=== PATIENT | female | born 1990 | race Hispanic/Latino ===

== ENCOUNTER 2020-11-20 01:47 | Emergency (ER) | payer BC ==
[2020-11-20] MEDS ORDERED: MAGNES/ALUMIN/SIMET 30ML UCUP ONE (03:10)
[2020-11-20] MEDS ORDERED: NA CHLORIDE 0.9% 1,000 ML ONE (03:11)
[2020-11-20] MEDS ORDERED: KETOROLAC 30 MG/ML INJ ONE (03:11)
[2020-11-20] MEDS ORDERED: LIDOCAINE VISCOUS 2% SOLN 15 ML UDC ONE (03:11)
[2020-11-20] MEDS ORDERED: ONDANSETRON 4 MG/2 ML VIAL ONE ×2 (03:11→06:07)
[2020-11-20] MEDS ORDERED: FAMOTIDINE 20 MG/2 ML VIAL IV ONE (03:11)
[2020-11-20 03:48] LABS: Absolute Lymphocytes (CBC) 0.8 K/uL (0.7-4.9); Basophils % 0.4 % (0-1.3); Hematocrit 36.6 % (36.0-45.0); Lymphocytes % 8.6 % (15.3-44.8); RBC Red Blood Cell Count 4.38 M/uL (3.86-4.86)
[2020-11-20 04:03] LABS: Albumin 3.6 g/dL (3.4-5.0); Alkaline Phosphatase 195 U/L (45-117); BUN Blood Urea Nitrogen 13 mg/dL (7-18); Bicarbonate 27 mmol/L (21-32); Bilirubin Direct 0.3 mg/dL (0-0.2); Bilirubin Total 0.6 mg/dL (0.2-1.0); Glucose Level 120 mg/dL (74-106); Lipase 191 U/L (73-393); Potassium 3.5 mmol/L (3.5-5.1); Protein, Total 7.8 g/dL (6.4-8.2); Sodium Level 142 mmol/L (136-145)
[2020-11-20 04:05] LABS: ALT/SGPT 448 U/L (12-78); AST/SGOT 396 U/L (15-37)
[2020-11-20] MEDS ORDERED: MORPHINE 4 MG/ML SYR ONE (06:07)
[2020-11-20 06:28] LABS: Blood Morphology Comment NOT SEEN (NOT SEEN); Platelet Estimate ADEQ
[2020-11-20] MEDS ORDERED: D5.45NS W/KCL 20MEQ 1,000 ML IV ONE (07:06)
[2020-11-20 07:16] LABS: Urine Blood NEGATIVE (NEG); Urine Glucose NEGATIVE (NEG); Urine Protein NEGATIVE (NEG); Urine pH 6.5 (5.0-7.0)
--- NOTE | 2020-11-20 07:22 | RAD REPORT ---
EXAM DESCRIPTION: US - Abdomen Exam Limited - 11/20/2020 7:11 am CLINICAL HISTORY: ABD PAIN COMPARISON: Abdomen Pelvis W Contrast dated 11/20/2020 FINDINGS: Gallbladder size is normal. Multiple 1 centimeter or less sized mobile gallstones are seen collecting in the dependent portion of the gallbladder. No wall thickening or pericholecystic fluid. Common jojo e duct is normal with no common duct stone identified. IMPRESSION: Multi stone cholelithiasis without additional findings for acute cholecystitis. No biliary tree abnormality.
--- NOTE | 2020-11-20 08:40 | ER ---
Nurse's Notes [facility] Name: Mila Mars Age: 30 yrs Sex: Female : 1990 Arrival Date: 11/20/2020 Time: 01:52 Bed 5 Private MD: Diagnosis: Abdominal and pelvic pain;Cholelithiasis-multistone;Elevated liver enzymes: Pre-existing Presentation: 11/20 02:12 Acuity: TAMEKA 3 ea 02:15 Chief complaint: Patient states: Epigastric pain that began yesterday morning, sg worsening now. States pain feels sharp and radiates to the middle of the back, I have had this pain in my back before when I had COVID but with this pain in my upper abdomen, that's new. Coronavirus screen: Client denies travel out of the [place] in the last 14 days. Ebola Screen: Patient negative for fever greater than or equal to 101.5 degrees Fahrenheit, and additional compatible Ebola Virus Disease symptoms Patient denies exposure to infectious person. Patient denies travel to an Ebola-affected area in the 21 days before illness onset. No symptoms or risks identified at this time. Initial Sepsis Screen: Does the patient meet any 2 criteria? HR > 90 bpm. Does the patient have a suspected source of infection? Yes: Acute abdominal pain. Risk Assessment: Do you want to hurt yourself or someone else? Patient reports no desire to harm self or others. Onset of symptoms was November 20, 2020. Care prior to arrival: None. Transition of care: patient was not received from another setting of care. 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 - Social history:: Smoking status: Patient denies any tobacco usage or history of. - Family history:: not pertinent. Screenin:33 Abuse screen: Denies threats or abuse. Nutritional screening: No deficits noted. ea Tuberculosis screening: No symptoms or risk factors identified. Fall Risk IV access (20 points). Assessment: 02:51 General: Appears in no apparent distress. uncomfortable, Behavior is calm, cooperative, jb4 appropriate for age. Pain: Complains of pain in xyphoid area Pain radiates to right lateral posterior chest Pain currently is 5 out of 10 on a pain scale. at worst was 10 out of 10 on a pain scale. Quality of pain is described as burning, stabbing, Pain began 4 days ago Is intermittent. Neuro: Level of Consciousness is awake, alert, obeys commands, Oriented to person, place, time, situation. Cardiovascular: Patient's skin is warm and dry. Respiratory: Airway is patent Respiratory effort is even, unlabored, Respiratory pattern is regular, symmetrical. GI: No signs and/or symptoms were reported involving the gastrointestinal system. : No signs and/or symptoms were reported regarding the genitourinary system. EENT: No signs and/or symptoms were reported regarding the EENT system. Derm: Skin is intact, Skin is pink, warm \T\ dry. Musculoskeletal: Circulation, motion, and sensation intact. Range of motion: intact in all extremities. 03:48 Reassessment: Patient appears in no apparent distress at this time. Patient and/or jb4 family updated on plan of care and expected duration. Pain level reassessed. Patient is alert, oriented x 3, equal unlabored respirations, skin warm/dry/pink. 05:00 Reassessment: Patient appears in no apparent distress at this time. Patient and/or jb4 family updated on plan of care and expected duration. Pain level reassessed. Patient is alert, oriented x 3, equal unlabored respirations, skin warm/dry/pink. 06:00 Reassessment: Patient appears in no apparent distress at this time. Patient and/or jb4 family updated on plan of care and expected duration. Pain level reassessed. Patient is alert, oriented x 3, equal unlabored respirations, skin warm/dry/pink. Patient states feeling better. 07:41 Reassessment: Patient appears in no apparent distress at this time. Patient and/or jd3 family updated on plan of care and expected duration. Pain level reassessed. Patient is alert, oriented x 3, equal unlabored respirations, skin warm/dry/pink. Patient states feeling better. General: Appears in no apparent distress. uncomfortable, Behavior is calm, cooperative, appropriate for age. Pain: Denies pain. GI: Abdomen is round non-distended. 08:38 Reassessment: Patient appears in no apparent distress at this time. Patient and/or jd3 family updated on plan of care and expected duration. Pain level reassessed. Patient is alert, oriented x 3, equal unlabored respirations, skin warm/dry/pink. tolerated PO fluids and food. 08:56 Reassessment: Patient appears in no apparent distress at this time. Patient and/or jd3 family updated on plan of care and expected duration. Pain level reassessed. Patient is alert, oriented x 3, equal unlabored respirations, skin warm/dry/pink. report understanding of discharge instructions, even and steady gait upon discharge. Patient states feeling better. Vital Signs: 02:17 BP 140 / 77; Pulse 84; Resp 18; Pulse Ox 100% on R/A; Weight 90.72 kg (R); Height 5 ft. sg 8 in. (172.72 cm); Pain 6/10; 03:00 BP 117 / 60; Pulse 65; Resp 16; Pulse Ox 100% on R/A; jb4 04:00 BP 104 / 45; Pulse 85; Resp 16; Pulse Ox 98% on R/A; jb4 04:45 BP 111 / 63; Pulse 69; Resp 16; Pulse Ox 100% on R/A; jb4 06:00 BP 114 / 73; Pulse 82; Resp 16; Temp 98.1; Pulse Ox 100% on R/A; jb4 07:37 BP 122 / 75; Pulse 77; Resp 18 S; Pulse Ox 97% on R/A; jd3 08:38 BP 126 / 73; Pulse 76; Resp 16 S; Pulse Ox 100% on R/A; jd3 02:17 Body Mass Index 30.41 (90.72 kg, 172.72 cm) ED Course: 01:52 Patient arrived in ED. mr 02:12 Abiel Wynne MD is Attending Physician. ma2 02:12 Arm band placed on. sg 02:13 Triage completed. ea 02:15 Kervin Oakley, RN is Primary Nurse. jb4 02:36 Patient has correct armband on for positive identification. Bed in low position. Call ea light in reach. Pulse ox on. NIBP on. 02:36 Patient maintains SpO2 saturation greater than 95% on room air. ea 05:50 CT Abd/Pelvis - IV Contrast Only In Process Unspecified. EDMS 07:11 US Abdomen Limited In Process Unspecified. EDMS 07:12 Primary Nurse role handed off by Kervin Oakley, ABDIRIZAK bd 07:15 Attending Physician role handed off by Abiel Wynne MD kdr 07:15 Rocky Joya MD is Attending Physician. kdr 07:37 Edwin Rodrigez RN is Primary Nurse. jd3 08:57 No provider procedures requiring assistance completed. IV discontinued, intact, jd3 bleeding controlled, No redness/swelling at site. Pressure dressing applied. Administered Medications: 03:10 Drug: Pepcid 20 mg Route: IVP; Site: right antecubital; jb4 03:40 Follow up: Response: No adverse reaction jb4 03:10 Drug: TORadol 30 mg Route: IVP; Site: right antecubital; jb4 03:40 Follow up: Response: No adverse reaction jb4 03:10 Drug: GI Cocktail without - (Maalox Suspension 30 ml, Lidocaine Liquid 2 % 15 jb4 ml) Route: PO; 03:45 Follow up: Response: No adverse reaction; Pain is decreased jb4 03:11 Drug: NS 0.9% 1000 ml Route: IV; Rate: 1000 ml; Site: right antecubital; jb4 04:00 Follow up: Response: No adverse reaction; IV Status: Completed infusion; IV Intake: jb4 1000ml 03:21 Not Given (Patient Refused): Zofran (Ondansetron) 4 mg IVP once; over 2 minutes jb4 05:50 Drug: Zofran (Ondansetron) 4 mg Route: IVP; Site: right antecubital; jb4 06:17 Follow up: Response: No adverse reaction jb4 05:53 Drug: morphine 4 mg Route: IVP; Site: right antecubital; jb4 06:16 Follow up: Response: No adverse reaction; Marked relief of symptoms; Pain is decreased; jb4 RASS: Alert and Calm (0) 06:45 Not Given (Other Intervention Used): Dextrose 5 % in 1/2 Normal Saline with KCl 10 jb4 mEq/L 1000 ml IV at 100 ml/hr continuous 06:45 Not Given (Other Intervention Used): D5-1/2 NS with KCl 20 mEq/L 1000 ml IV at 100 jb4 ml/hr continuous 06:53 Drug: D5-1/2 NS with KCl 20 mEq/L 1000 ml Route: IV; Rate: 100 ml/hr; Site: right jb4 antecubital; 08:58 Follow up: Response: No adverse reaction; IV Status: Order to discontinue infusion jd3 Intake: 04:00 IV: 1000ml; Total: 1000ml. jb4 Outcome: 08:39 Discharge ordered by . kdr 08:57 Discharged to home ambulatory, with family. jd3 08:57 Condition: stable 08:57 Discharge instructions given to patient, Instructed on discharge instructions, follow up and referral plans. medication usage, Demonstrated understanding of instructions, follow-up care, medications, Prescriptions given X 3. 09:45 Patient left the ED. jd3 Signatures: Dispatcher [employer] EDMS Beena Carlos Steven, RN Rocky Guadalupe MD MD kdr Rivera, Lindsey yan AdinKervin RN RN jb4 Kari Byrnes RN RN ea Davies, Jonathon, RN RN jd3 Abiel Wynne MD MD ma2 Corrections: (The following items were deleted from the chart) 07:41 07:37 Reassessment: Patient appears in no apparent distress at this time. Patient jd3 and/or family updated on plan of care and expected duration. Pain level reassessed. Patient is alert, oriented x 3, equal unlabored respirations, skin warm/dry/pink. jd3
--- NOTE | 2020-11-20 08:40 | EDPHYS ---
Physician Documentation [facility] Name: Mila Mars Age: 30 yrs Sex: Female : 1990 Arrival Date: 11/20/2020 Time: 01:52 Bed 5 Private MD: ED Physician Rocky Joya HPI: 11/20 02:52 This 30 yrs old Female presents to ER via Ambulatory with complaints of ma2 epigastric abd Pain. 02:52 The patient or guardian reports chest pain that is located primarily in the epigastric ma2 area. The chest pain is described as burning. Severity of pain: At its worst the pain was moderate in the emergency department the pain has resolved. 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 - Social history:: Smoking status: Patient denies any tobacco usage or history of. - Family history:: not pertinent. ROS: 02:52 Constitutional: Negative for fever, chills, and weight loss. ma2 02:52 All other systems are negative. Exam: 02:52 Constitutional: This is a well developed, well nourished patient who is awake, alert, ma2 and in no acute distress. Chest/axilla: Normal chest wall appearance and motion. Nontender with no deformity. No lesions are appreciated. Cardiovascular: Regular rate and rhythm with a normal S1 and S2. No gallops, murmurs, or rubs. Normal PMI, no JVD. No pulse deficits. Respiratory: Lungs have equal breath sounds bilaterally, clear to auscultation and percussion. No rales, rhonchi or wheezes noted. No increased work of breathing, no retractions or nasal flaring. Abdomen/GI: Soft, non-tender, with normal bowel sounds. No distension or tympany. No guarding or rebound. No evidence of tenderness throughout. Neuro: Awake and alert, GCS 15, oriented to person, place, time, and situation. Cranial nerves II-XII grossly intact. Motor strength 5/5 in all extremities. Sensory grossly intact. Cerebellar exam normal. Normal gait. Vital Signs: 02:17 BP 140 / 77; Pulse 84; Resp 18; Pulse Ox 100% on R/A; Weight 90.72 kg (R); Height 5 ft. sg 8 in. (172.72 cm); Pain 6/10; 03:00 BP 117 / 60; Pulse 65; Resp 16; Pulse Ox 100% on R/A; jb4 04:00 BP 104 / 45; Pulse 85; Resp 16; Pulse Ox 98% on R/A; jb4 04:45 BP 111 / 63; Pulse 69; Resp 16; Pulse Ox 100% on R/A; jb4 06:00 BP 114 / 73; Pulse 82; Resp 16; Temp 98.1; Pulse Ox 100% on R/A; jb4 07:37 BP 122 / 75; Pulse 77; Resp 18 S; Pulse Ox 97% on R/A; jd3 08:38 BP 126 / 73; Pulse 76; Resp 16 S; Pulse Ox 100% on R/A; jd3 02:17 Body Mass Index 30.41 (90.72 kg, 172.72 cm) sg MDM: 02:12 Patient medically screened. ma2 02:52 Differential diagnosis: gastritis, gastroesophageal reflux disease (GERD), ma2 pancreatitis. Data reviewed: vital signs, nurses notes. 06:19 ED course: transaminases are high at 400 both, alk phos is 190, ct shows cholelithiasis ma2 with no cholecystitis Tbili and lipase are wnl.. I paged dr ventura and discussed with Elva ANTONIO. she advised to do US and call back with result, as dr. hahn maybe able to take care of this patient in our hospital if cbd is not dilated . 06:48 ED course: no fever or sign of infection, wbc wnl... patient also look well, not in ma2 distress, pain is resolved after morphine. will not administer any abx at this time.. ED course: discussed with dr. martini as potential admission pending US . 07:16 ED course: Dr. Espinosa called to inform us that the patient will likely need ERCP kdr prior to cholecystectomy which he can not perform and so the patient will need to be transferred. 11/20 02:51 Order name: Basic Metabolic Panel; Complete Time: 04:18 ma2 11/20 02:51 Order name: CBC with Diff; Complete Time: 06:46 ma2 11/20 02:51 Order name: Hepatic Function; Complete Time: 04:18 ma2 11/20 02:51 Order name: Lipase; Complete Time: 04:18 11/20 03:55 Order name: Manual Differential; Complete Time: 06:46 EDMS 11/20 07:00 Order name: Urine Dipstick--Ancillary (enter results) 11/20 02:51 Order name: US Abdomen Limited; Complete Time: 07:25 ma2 11/20 04:19 Order name: CT Abd/Pelvis - IV Contrast Only; Complete Time: 19:07 2 11/20 07:00 Order name: Urine --Ancillary (enter results) 11/20 07:01 Order name: Urine Dipstick-Ancillary; Complete Time: 07:25 EDMS 11/20 07:01 Order name: Urine --Ancillary; Complete Time: 07:25 EDMS 11/20 02:51 Order name: EKG - Nurse/Tech; Complete Time: 03:28 11/20 02:51 Order name: IV Saline Lock; Complete Time: 03:13 11/20 02:51 Order name: NPO; Complete Time: 03:13 2 11/20 02:51 Order name: Urine Dipstick-Ancillary (obtain specimen); Complete Time: 06:59 11/20 08:57 Order name: EKG Electrocardiogram EDMS Administered Medications: 03:10 Drug: Pepcid 20 mg Route: IVP; Site: right antecubital; jb4 03:40 Follow up: Response: No adverse reaction jb4 03:10 Drug: TORadol 30 mg Route: IVP; Site: right antecubital; jb4 03:40 Follow up: Response: No adverse reaction jb4 03:10 Drug: GI Cocktail without - (Maalox Suspension 30 ml, Lidocaine Liquid 2 % 15 jb4 ml) Route: PO; 03:45 Follow up: Response: No adverse reaction; Pain is decreased jb4 03:11 Drug: NS 0.9% 1000 ml Route: IV; Rate: 1000 ml; Site: right antecubital; jb4 04:00 Follow up: Response: No adverse reaction; IV Status: Completed infusion; IV Intake: jb4 1000ml 03:21 Not Given (Patient Refused): Zofran (Ondansetron) 4 mg IVP once; over 2 minutes jb4 05:50 Drug: Zofran (Ondansetron) 4 mg Route: IVP; Site: right antecubital; jb4 06:17 Follow up: Response: No adverse reaction jb4 05:53 Drug: morphine 4 mg Route: IVP; Site: right antecubital; jb4 06:16 Follow up: Response: No adverse reaction; Marked relief of symptoms; Pain is decreased; jb4 RASS: Alert and Calm (0) 06:45 Not Given (Other Intervention Used): Dextrose 5 % in 1/2 Normal Saline with KCl 10 jb4 mEq/L 1000 ml IV at 100 ml/hr continuous 06:45 Not Given (Other Intervention Used): D5-1/2 NS with KCl 20 mEq/L 1000 ml IV at 100 jb4 ml/hr continuous 06:53 Drug: D5-1/2 NS with KCl 20 mEq/L 1000 ml Route: IV; Rate: 100 ml/hr; Site: right jb4 antecubital; 08:58 Follow up: Response: No adverse reaction; IV Status: Order to discontinue infusion jd3 Disposition: 11/20/20 08:39 Discharged to Home. Impression: Abdominal and pelvic pain, Cholelithiasis - multistone, Elevated liver enzymes: Pre-existing. - Condition is Stable. - Discharge Instructions: Cholelithiasis, [id number], Abdominal Pain, Adult, [id number]. - Prescriptions for Pepcid 20 mg Oral Tablet - take 1 tablet by ORAL route every 12 hours for 5 days; 10 tablet. Zofran 4 mg Oral Tablet - take 1 tablet by ORAL route every 12 hours As needed; 6 tablet. Tramadol 50 mg Oral Tablet - take 1 tablet by ORAL route every 8 hours as needed; 12 tablet. - Medication Reconciliation Form, Thank You Letter, Prescription Opioid Use form. - Follow up: Private Physician; When: 2 - 3 days; Reason: If symptoms return, Further diagnostic work-up, Recheck today's complaints, Continuance of care, Re-evaluation by your physician. - Problem is new. - Symptoms have improved. Signatures: Dispatcher [employer] EDMS Edwin Keyes RN RN sg Rocky Joya MD MD kdr Bryson, James, RN RN jb4 Edwin Rodrigez RN RN jd3 Abiel Wynne MD MD ma2 Adonay Perkins 2 Corrections: (The following items were deleted from the chart) 05:26 04:27 Misc. Order ordered. [facility] jb 06:16 06:12 NPO ordered. [facility] jb 06:23 06:19 ED course: transaminases are high at 400 both, alk phos . [place] [id number] 06:50 06:48 ED course: discussed with dr. martini as well . [place] [address] 09:45 08:39 11/20/2020 08:39 Discharged to Home. Impression: Abdominal and pelvic pain; jd3 Cholelithiasis - multistone; Elevated liver enzymes: Pre-existing. Condition is Stable. Forms are Medication Reconciliation Form, Thank You Letter, Antibiotic Education, Prescription Opioid Use. Follow up: Private Physician; When: 2 - 3 days; Reason: If symptoms return, Further diagnostic work-up, Recheck today's complaints, Continuance of care, Re-evaluation by your physician. Problem is new. Symptoms have improved. kdr
[2020-11-20 09:57] VITALS: TEMP 98.1
[2020-11-20 09:59] VITALS: BP 126/73; O2SAT 100
--- NOTE | 2020-11-20 10:56 | RAD REPORT ---
EXAM DESCRIPTION: CT - Abdomen Pelvis W Contrast - 11/20/2020 6:52 am CLINICAL HISTORY: ABD PAIN TECHNIQUE: Axial computed tomography images of the abdomen and pelvis with intravenous contrast. S agittal and coronal reformatted images were created and reviewed. This CT exam was performed using one or more of the following dose reduction techniques: automated exposure control, adjustment of t he mA and/or kV according to patient size, and/or use of iterative reconstruction technique. COMPARISON: No relevant prior studies available. FINDINGS: Limitations: None. Lung bases: No abnormality noted. Pleural space: No abnormality noted. Heart: No abnormality noted. Mediastinum: No abnormality noted. ABDOMEN: Liver: No abnormality noted. Gallbladder and bile ducts: Multiple gallstones present. Pancreas: Homogeneous enhancement. No mass, inflammation or ductal dilation. Spleen: No abnormality noted. Adrenals: Visualized portions appear normal. Kidneys and ureters: Homogeneous enhancement. No mass, hydronephrosis or stone. Tiny stones could be obscured by contrast. Stomach and bowel: No distension or mucosal thickening. No inflammation noted. PELVIS: Appendix: Well seen and appears normal. Bladder: The urinary bladder is largely collapsed and not well assessed. No stones. Reproductive: No abnormalities noted. ABDOMEN and PELVIS: Intraperitoneal space: No free air. No significant fluid collection. Bones/joints: No acute change noted. Soft tissues: No abnormality noted. Vasculature: No abdominal aortic aneurysm. Lymph nodes: No pathologically enlarged lymph nodes. IMPRESSION: Cholelithiasis. If there is clinical concern for cholecystitis, sonography is the moda lity of choice. Electronically signed by: Beena Gonsalves MD 11/20/2020 6:00 AM WRAPPER CASHIER Due to temporary technical issues with the PACS/Fluency reporting system, reports are being signed by the in house radiologist without review as a courtesy to ensure prompt reporting. The interpreting r adiologist is fully responsible for the content of the report.
--- NOTE | 2020-11-20 11:53 | EKG ---
Test Date: 2020-11-20 Test Time: 03:21:34 Planning Coordinator: GLORIA MEASUREMENT RESULTS: Intervals: Rate: 72 IN: 108 QRSD: 88 QT: 396 QTc: 433 [place]: P: IN: 108 QRS: 121 T: 101 INTERPRETIVE STATEMENTS: Sinus rhythm with short IN Left posterior fascicular block Cannot rule out Anterior infarct, age undetermined Abnormal ECG No previous ECG available for comparison Electronically Signed On 11-20-20 11:53:15 BLIND CLEANER by Otf Eduardo
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
--- OUTSIDE RECORDS SUMMARY | 2020-11-20 12:35 | XMS REPORT | Clinical Summary ---
:1990 Author Organization [address] [address] Care Team Providers Name Role Phone Unavailable Primary Care Provider Unavailable Allergies Not on File Medications Not on file Active Problems Not on file Encounters Date Type Specialty Care Team Description 10/26/2020 Lab Lab Dash Mackey MD C ontact with and (suspected) exposure to oth er viral communicable di seases (Primary Dx) after 11/20/2019 Social History Tobacco Use Types Packs/Day Years Used Date Never Assessed Sex Assigned at Date Recorded Not on file Last Filed Vital Signs Not on file Plan of Treatment Health Maintenance Due Date Last Done Comments COVID-19 VACCINE (1 of 2) 2006 HEPATITIS C SCREENING 2008 CERVICAL CANCER SCREENING 2011 INFLUENZA VACCINE 05/11/2020 Procedures Procedure Name Priority Date/Time Associated Diagnosis Comme nts COVID-19 QUALITATIVE Routine 10/26/2020 10:04 Contact with and Results for this PCR AM [employer]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 after 11/20/2019 Results COVID-19 qualitative PCR (10/26/2020 10:04 AM [employer] DEVELOPER) Interpretation Negative results do not prec lude 2019-nCoV infection and should not be used as the sole basis for treatment or other patient management decisions. Negative results must be combined with clinical observations, patient history, and epidemiological GEIGER information. [facility] COVID-19 qualitative Not-Detected Not-Detecte [place] PCR result d [facility] COVID-19 qualitative See link below for [place] PCR PDF Lab [facility] ReportComment: Case HOSPITAL Number: [id number] Specimen Nasal swab Performing Organization Address City/State/ZIP Code Phon e Number [facility] DEPARTMENT OF PATHOLOGY AND [address] [place] [address] [phone] GENOMIC MEDICINE [address] [place] [address] 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
--- OUTSIDE RECORDS SUMMARY | 2020-11-20 12:35 | XMS REPORT | Clinical Summary ---
:1990 Author Organization [facility] Address [address] [place] [address] Care Team Providers Name Role Phone Joya Primary Care Provider Allergies No Known Allergies Medications Medication Sig Dispensed Refills Start Date End Date Status docusate sodium Take 100 mg by mouth 0 Active (COLACE) 100 MG 2 (two) times daily capsule as needed for Constipation. polyethylene glycol 2 teaspoonful by 0 Active 3350,bulk, Gran Miscellaneous route daily. Active Problems Not on file Social History Tobacco Use Types Packs/Day Years Used Date Never Smoker Smokeless Tobacco: Never Used Alcohol Use Drinks/Week oz/Week Comments Yes Occasionally, 1/ month Sex Assigned at Date Recorded Not on file Last Filed Vital Signs Not on file Plan of Treatment Health Maintenance Due Date Last Done Comments LIPID PANEL 2010 CERVICAL CANCER SCREENING PAP ONLY (Age 21-65) 2011 INFLUENZA VACCINE (#1) 2020 Results Not on fileafter 11/20/2019 Insurance Payer Benefit Plan / Subscriber ID Effective Dates Phone Addre ss Type Group BLUE BCBS ADV HMO [id number] 2017-Mick [phone] [id number] CROSS/BLUE EXCHANGE t 2 [facility] [id number]
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
== END 2020-11-20 09:45 | disposition home or self-care (01) ==
LOC: ER 01:47
DX: K80.20 Calculus of gallbladder without cholecystitis without obstruction (principal); R94.5 Abnormal results of liver function studies
CPT/HCPCS: 93005; 85025; 80048; 36415; 81025; 80076; 81003; 83690; 74177; 76705; Q9967; J7030; J2405; 96361; 96374; 96375; 99284